=== PATIENT | male | born 1945 | race Caucasian/White ===

== ENCOUNTER 2017-04-09 07:58 | Outpatient (CLI) | payer MEDICARE, OTHER ==
--- NOTE | 2017-04-09 09:35 | Ultrasound Report ---
LIMITED RETROPERITONEAL ULTRASOUND: 04/09/2017 CLINICAL INDICATION: Followup aneurysm. COMPARISON: 01/19/2016 TECHNIQUE: Real-time scanning was performed with environmental marketing representative static images obtained. FINDINGS: The abdominal aorta measures 2.0 cm proximally, and 2.6 cm in the mid portion. Mild aneur ysmal dilatation distally is again seen, measuring 3.1 x 3.0 cm (3.[address] 01/19/2016). The iliac s are normal in caliber. No free fluid is present. IMPRESSION: STABLE SMALL DISTAL ABDOMINAL AORTIC ANEURYSM. JOB #: [id number] EXT JOB #:[id number]
== END 2017-04-09 07:59 | disposition home or self-care (01) ==
LOC: DI 07:58
PROVIDERS: ATTEND Family Medicine
DX: I71.4 Abdominal aortic aneurysm, without rupture (principal)
CPT/HCPCS: 76770

== ENCOUNTER 2017-09-25 08:00 | Outpatient (CLI) | payer MEDICARE, BC ==
[2017-09-25 12:42] LABS: BASOPHILS # (AUTO) 0.1 10^3/uL (0.0-0.1); EOSINOPHILS # (AUTO) 0.2 10^3/uL (0.0-0.7); EOSINOPHILS % (AUTO) 4.7 %; HGB - HEMOGLOBIN 13.9 g/dL (14.0-18.0); LYMPHOCYTES # (AUTO) 0.9 10^3/uL (1.5-3.5); LYMPHOCYTES % (AUTO) 17.3 %; MEAN CORPUSCULAR HEMOGLOBIN 31.2 pg (27.0-31.0); MEAN CORPUSCULAR HGB CONC 32.7 g/dL (32.0-36.0); MEAN CORPUSCULAR VOLUME 95.4 fL (80.0-94.0); MONOCYTES # (AUTO) 0.4 10^3/uL (0.0-1.0); MONOCYTES % (AUTO) 8.3 %; NEUTROPHILS # (AUTO) 3.4 10^3/uL (1.5-6.6); NEUTROPHILS % (AUTO) 66.7 %; PLT - PLATELET COUNT 256 10^3/uL (130-450); RED BLOOD COUNT 4.44 10^6/uL (4.70-6.10); RED CELL DISTRIBUTION WIDTH 13.1 % (12.0-15.0); WHITE BLOOD COUNT 5.1 x10^3/uL (4.8-10.8)
[2017-09-25 13:11] LABS: ALBUMIN 4.4 g/dL (3.2-5.5); ALBUMIN/GLOBULIN RATIO 1.5 (1.0-2.2); ALKALINE PHOSPHATASE 72 IU/L (42-121); ALT ALANINE AMINOTRANSFERASE 20 IU/L (10-60); AST ASPARTATE AMINOTRANSFERASE 20 IU/L (10-42); BILIRUBIN,TOTAL 0.5 mg/dL (0.2-1.0); BUN - BLOOD UREA NITROGEN 20 mg/dL (6-20); CALCIUM 8.8 mg/dL (8.5-10.3); CARBON DIOXIDE - CO2 24 mmol/L (21-32); CHLORIDE 108 mmol/L (101-111); CHOL/HDL RATIO 4.9 (<5.0); CHOLESTEROL 175 mg/dL; CREATININE 1.1 mg/dL (0.6-1.2); GFR - MDRD 66 (>89); GLUCOSE 101 mg/dL (70-100); HDL CHOLESTEROL 36 mg/dL; LDL CHOLESTEROL,CALCULATED 113 mg/dL; LDL/HDL RATIO 3.1 (<3.6); SODIUM 137 mmol/L (135-145); TOTAL PROTEIN 7.3 g/dL (6.7-8.2); VLDL CHOLESTEROL 26 mg/dL
== END 2017-09-25 08:01 | disposition home or self-care (01) ==
LOC: LAB.WCP 08:00
PROVIDERS: ATTEND Family Medicine
DX: I48.91 Unspecified atrial fibrillation (principal); E78.9 Disorder of lipoprotein metabolism, unspecified; R97.20 Elevated prostate specific antigen [PSA]; I10 Essential (primary) hypertension; M05.9 Rheumatoid arthritis with rheumatoid factor, unspecified; K21.9 Gastro-esophageal reflux disease without esophagitis
CPT/HCPCS: 36415; 80053; 80061; 83721; 84153; 84443; 85025

== ENCOUNTER 2018-01-27 08:00 | Outpatient (CLI) | payer MEDICARE, BC | END 2018-01-27 08:01 | LOC: LAB.WCP 08:00 | PROVIDERS: ATTEND Internal Medicine Gastroenterology | DX: K13.70 Unspecified lesions of oral mucosa (principal) | CPT/HCPCS: 36415; 82565 ==

== ENCOUNTER 2018-03-28 08:11 | Outpatient (CLI) | payer MEDICARE, BC ==
[2018-03-28 13:59] LABS: BASOPHILS # (AUTO) 0.1 10^3/uL (0.0-0.1); BASOPHILS % (AUTO) 1.3 %; EOSINOPHILS # (AUTO) 0.2 10^3/uL (0.0-0.7); EOSINOPHILS % (AUTO) 4.7 %; HGB - HEMOGLOBIN 13.7 g/dL (14.0-18.0); LYMPHOCYTES # (AUTO) 1.2 10^3/uL (1.5-3.5); LYMPHOCYTES % (AUTO) 26.3 %; MEAN CORPUSCULAR HEMOGLOBIN 31.7 pg (27.0-31.0); MEAN CORPUSCULAR HGB CONC 34.5 g/dL (32.0-36.0); MEAN PLATELET VOLUME 8.7 fL (7.4-11.4); MONOCYTES # (AUTO) 0.5 10^3/uL (0.0-1.0); MONOCYTES % (AUTO) 10.6 %; NEUTROPHILS # (AUTO) 2.7 10^3/uL (1.5-6.6); NEUTROPHILS % (AUTO) 57.1 %; PLT - PLATELET COUNT 212 10^3/uL (130-450); RED BLOOD COUNT 4.31 10^6/uL (4.70-6.10); RED CELL DISTRIBUTION WIDTH 12.9 % (12.0-15.0); WHITE BLOOD COUNT 4.7 x10^3/uL (4.8-10.8)
[2018-03-28 14:07] LABS: ALBUMIN 4.1 g/dL (3.2-5.5); ALBUMIN/GLOBULIN RATIO 1.5 (1.0-2.2); ALKALINE PHOSPHATASE 73 IU/L (42-121); ALT ALANINE AMINOTRANSFERASE 24 IU/L (10-60); AST ASPARTATE AMINOTRANSFERASE 24 IU/L (10-42); BILIRUBIN,TOTAL 1.1 mg/dL (0.2-1.0); BUN - BLOOD UREA NITROGEN 21 mg/dL (6-20); CALCIUM 8.8 mg/dL (8.5-10.3); CARBON DIOXIDE - CO2 27 mmol/L (21-32); CHLORIDE 106 mmol/L (101-111); CHOL/HDL RATIO 4.5 (<5.0); CHOLESTEROL 176 mg/dL; CREATININE 1.1 mg/dL (0.6-1.2); GFR - MDRD 66 (>89); GLUCOSE 95 mg/dL (70-100); HDL CHOLESTEROL 39 mg/dL; LDL CHOLESTEROL,CALCULATED 118 mg/dL; SODIUM 139 mmol/L (135-145); TOTAL PROTEIN 6.8 g/dL (6.7-8.2); VLDL CHOLESTEROL 19 mg/dL
== END 2018-03-28 08:12 | disposition home or self-care (01) ==
LOC: LAB.WCP 08:11
PROVIDERS: ATTEND Family Medicine
DX: I48.91 Unspecified atrial fibrillation (principal); I71.9 Aortic aneurysm of unspecified site, without rupture; Z95.0 Presence of cardiac pacemaker; E78.5 Hyperlipidemia, unspecified; M51.36 Other intervertebral disc degeneration, lumbar region
CPT/HCPCS: 36415; 80053; 80061; 83721; 85025

== ENCOUNTER 2018-10-17 07:47 | Outpatient (CLI) | payer MEDICARE, BC ==
[2018-10-17 13:32] LABS: BASOPHILS % (AUTO) 0.7 %; EOSINOPHILS # (AUTO) 0.2 10^3/uL (0.0-0.7); EOSINOPHILS % (AUTO) 4.4 %; HGB - HEMOGLOBIN 14.1 g/dL (14.0-18.0); LYMPHOCYTES # (AUTO) 1.2 10^3/uL (1.5-3.5); LYMPHOCYTES % (AUTO) 25.1 %; MEAN CORPUSCULAR HEMOGLOBIN 31.8 pg (27.0-31.0); MEAN CORPUSCULAR HGB CONC 35.1 g/dL (32.0-36.0); MEAN CORPUSCULAR VOLUME 90.7 fL (80.0-94.0); MEAN PLATELET VOLUME 8.5 fL (7.4-11.4); MONOCYTES # (AUTO) 0.5 10^3/uL (0.0-1.0); NEUTROPHILS # (AUTO) 2.9 10^3/uL (1.5-6.6); NEUTROPHILS % (AUTO) 58.8 %; PLT - PLATELET COUNT 208 10^3/uL (130-450); RED BLOOD COUNT 4.42 10^6/uL (4.70-6.10); RED CELL DISTRIBUTION WIDTH 13.2 % (12.0-15.0); WHITE BLOOD COUNT 4.9 x10^3/uL (4.8-10.8)
[2018-10-17 14:05] LABS: ALBUMIN 3.9 g/dL (3.2-5.5); ALBUMIN/GLOBULIN RATIO 1.3 (1.0-2.2); BILIRUBIN,TOTAL 0.9 mg/dL (0.2-1.0); CALCIUM 8.9 mg/dL (8.5-10.3); CREATININE 0.9 mg/dL (0.6-1.2); TOTAL PROTEIN 6.8 g/dL (6.7-8.2)
== END 2018-10-17 07:48 | disposition home or self-care (01) ==
LOC: LAB.WCP 07:47
PROVIDERS: ATTEND Family Medicine
DX: N40.0 Benign prostatic hyperplasia without lower urinary tract symptoms (principal); I10 Essential (primary) hypertension; E78.5 Hyperlipidemia, unspecified; K21.9 Gastro-esophageal reflux disease without esophagitis; Z12.5 Encounter for screening for malignant neoplasm of prostate
CPT/HCPCS: 36415; 80053; 85025; G0103; 84153

== ENCOUNTER 2019-02-24 07:27 | Outpatient (CLI) | payer MEDICARE, BC ==
[2019-02-24 12:29] LABS: BASOPHILS % (AUTO) 0.9 %; EOSINOPHILS # (AUTO) 0.2 10^3/uL (0.0-0.7); EOSINOPHILS % (AUTO) 3.7 %; HGB - HEMOGLOBIN 13.3 g/dL (14.0-18.0); LYMPHOCYTES # (AUTO) 1.2 10^3/uL (1.5-3.5); LYMPHOCYTES % (AUTO) 25.6 %; MEAN CORPUSCULAR HEMOGLOBIN 30.5 pg (27.0-31.0); MEAN CORPUSCULAR HGB CONC 32.3 g/dL (32.0-36.0); MEAN CORPUSCULAR VOLUME 94.5 fL (80.0-94.0); MEAN PLATELET VOLUME 10.4 fL (7.4-11.4); MONOCYTES # (AUTO) 0.5 10^3/uL (0.0-1.0); MONOCYTES % (AUTO) 10.8 %; NEUTROPHILS # (AUTO) 2.7 10^3/uL (1.5-6.6); NEUTROPHILS % (AUTO) 58.8 %; PLT - PLATELET COUNT 208 10^3/uL (130-450); RED BLOOD COUNT 4.36 10^6/uL (4.70-6.10); RED CELL DISTRIBUTION WIDTH 12.8 % (12.0-15.0); WHITE BLOOD COUNT 4.5 x10^3/uL (4.8-10.8)
[2019-02-24 12:41] LABS: ALBUMIN 3.9 g/dL (3.2-5.5); ALBUMIN/GLOBULIN RATIO 1.3 (1.0-2.2); ALKALINE PHOSPHATASE 76 IU/L (42-121); ALT ALANINE AMINOTRANSFERASE 25 IU/L (10-60); AST ASPARTATE AMINOTRANSFERASE 23 IU/L (10-42); BILIRUBIN,TOTAL 0.9 mg/dL (0.2-1.0); BUN - BLOOD UREA NITROGEN 17 mg/dL (6-20); CARBON DIOXIDE - CO2 23 mmol/L (21-32); CHLORIDE 108 mmol/L (101-111); CHOL/HDL RATIO 4.6 (<5.0); CHOLESTEROL 174 mg/dL; CREATININE 0.9 mg/dL (0.6-1.2); GFR - MDRD 83 (>89); GLUCOSE 106 mg/dL (70-100); HDL CHOLESTEROL 38 mg/dL; LDL CHOLESTEROL,CALCULATED 121 mg/dL; LDL/HDL RATIO 3.2 (<3.6); SODIUM 140 mmol/L (135-145); TOTAL PROTEIN 6.9 g/dL (6.7-8.2); VLDL CHOLESTEROL 15 mg/dL
== END 2019-02-24 07:28 | disposition home or self-care (01) ==
LOC: LAB.WCP 07:27
PROVIDERS: ATTEND Physician Assistant Medical
DX: R97.20 Elevated prostate specific antigen [PSA] (principal); R00.1 Bradycardia, unspecified; E78.5 Hyperlipidemia, unspecified
CPT/HCPCS: 36415; 80053; 80061; 83721; 84443; 85025

== ENCOUNTER 2019-07-30 15:00 | Emergency (ER) | payer MEDICARE, BC ==
[2019-07-30 15:16] VITALS: BP 141/75
[2019-07-30 15:33] LABS: BASOPHILS % (AUTO) 0.2 %; EOSINOPHILS # (AUTO) 0.1 10^3/uL (0.0-0.7); EOSINOPHILS % (AUTO) 1.2 %; HGB - HEMOGLOBIN 14.2 g/dL (14.0-18.0); LYMPHOCYTES % (AUTO) 11.2 %; MEAN CORPUSCULAR HEMOGLOBIN 31.1 pg (27.0-31.0); MEAN CORPUSCULAR HGB CONC 33.1 g/dL (32.0-36.0); MEAN CORPUSCULAR VOLUME 94.1 fL (80.0-94.0); MEAN PLATELET VOLUME 9.5 fL (7.4-11.4); MONOCYTES # (AUTO) 0.6 10^3/uL (0.0-1.0); MONOCYTES % (AUTO) 6.9 %; NEUTROPHILS # (AUTO) 6.9 10^3/uL (1.5-6.6); NEUTROPHILS % (AUTO) 80.1 %; PLT - PLATELET COUNT 229 10^3/uL (130-450); RED BLOOD COUNT 4.56 10^6/uL (4.70-6.10); RED CELL DISTRIBUTION WIDTH 12.6 % (12.0-15.0); WHITE BLOOD COUNT 8.6 x10^3/uL (4.8-10.8)
[2019-07-30 15:46] LABS: ALBUMIN 4.4 g/dL (3.2-5.5); ALBUMIN/GLOBULIN RATIO 1.4 (1.0-2.2); BILIRUBIN,TOTAL 0.8 mg/dL (0.2-1.0); CALCIUM 9.3 mg/dL (8.5-10.3); TOTAL PROTEIN 7.5 g/dL (6.7-8.2)
--- NOTE | 2019-07-30 16:13 | CT Report ---
Reason: fall followed by confusion Procedure Date: 07/30/2019 Accession Number: [id number] / [id number] Procedure: CT - HEAD WO CPT Code: Final Report FULL RESULT: EXAM: CT HEAD EXAM DATE: 07/30/2019 03:34 PM CLINICAL HISTORY: Fall followed by confusion. COMPARISON: NONE TECHNIQUE: Multiaxial CT images were obtained from the foramen magnum to the vertex. Reformats: Sagittal and coronal. IV contrast: None. In accordance with CT protocol optimization, one or more of the following dose reduction techniques were utilized for this exam: automated exposure control, adjustment of mA and/or KV based on patient size, or use of iterative reconstructive technique. FINDINGS: There is moderate cerebral atrophy . No evidence of intracranial hemorrhage, mass lesion or mass effect. No cortical infarct. Ventricles are within normal limits. No evidence of focal extraaxial fluid collection. Clear paranasal sinuses and mastoid air cells as visualized. Intact skull. There is a small amount of air noted adjacent to the lateral aspect of the right lateral maxillary sinus wall. Correlate for facial fracture although no other evidence for such is identified on this exam. Mild irregularity at the right zygomatic arch appears to be from a variant appearance of suture. IMPRESSION: Cerebral atrophy. No intracranial hemorrhage. No skull fracture. There is a small amount of air at the right infratemporal fossa. See above comments. RADIA
== END 2019-07-30 16:40 | disposition left against medical advice (07) ==
LOC: ED 15:00
DX: S63.501A Unspecified sprain of right wrist, initial encounter (principal); S00.83XA Contusion of other part of head, initial encounter; S60.222A Contusion of left hand, initial encounter; S60.221A Contusion of right hand, initial encounter; S60.511A Abrasion of right hand, initial encounter; S60.411A Abrasion of left index finger, initial encounter; S80.212A Abrasion, left knee, initial encounter; S80.211A Abrasion, right knee, initial encounter; W10.8XXA Fall (on) (from) other stairs and steps, initial encounter; Y92.29 Other specified public building as the place of occurrence of the external cause; Y93.01 Activity, walking, marching and hiking; E04.1 Nontoxic single thyroid nodule; M54.2 Cervicalgia; Z95.0 Presence of cardiac pacemaker; Z79.82 Long term (current) use of aspirin
CPT/HCPCS: 36415; 70450; 70486; 72125; 73110; 80053; 83690; 85025; 99284; A9270

== ENCOUNTER 2019-07-30 20:02 | Emergency (ER) | payer MEDICARE, BC ==
--- NOTE | 2019-07-30 20:56 | ED Physician Documentation ---
History of Present Illness - Stated complaint Stated Complaint: GLF/FACE LAC - Chief complaint Chief Complaint: Trauma Hd/Nk - History obtained from History obtained from: Patient - History of Present Illness Timing: Today - Additonal information Additional information: This is a 74-year-old man who was coming out of the building today and tripped coming down the stairs. He was carrying a box in his arms and he cannot ran to try and catch himself but ended up falling landing on his knees right wrist and of the right cheek. This was around noon. He was a little disoriented afterward he said he did not remember the actual fall but he drove himself home. He came into the emergency department around 3:00 this afternoon they did a head CT and he said he sat waiting in the waiting room for 4 hours and he got a little perturbed so he drove home but then started swelling more in his cheek and decided that he probably should come back and get evaluated. He is rating his pain at a 6-7 out of 10. He does not really have a headache. He complains that his neck "aches", But denies any numbness or tingling or weakness into the arms or legs. He has not felt dizzy. He was little queasy immediately after the fall but no vomiting. He has not taken anything for the pain. He has a multitude of scrapes on his hands and knees. He thinks his last tetanus vaccine was 2016 here at [facility]. Review of Systems Constitutional: denies: Fever Eyes: reports: Other (No double vision). denies: Loss of vision Nose: denies: Rhinorrhea / runny nose, Congestion Respiratory: denies: Dyspnea GI: reports: Nausea. denies: Vomiting Skin: reports: Abrasion (s) Musculoskeletal: reports: Neck pain, Extremity pain Neurologic: reports: Head injury. denies: Generalized weakness, Focal weakness, Numbness, Difficulty speaking, Near syncope, Syncope, Altered mental status, Headache, LOC PD PAST MEDICAL HISTORY - Past Medical History Cardiovascular: Arrhythmia - Past Surgical History Cardiovascular: Pacemaker - Present Medications Home Medications: Ambulatory Orders Medication Instructions Recorded Confirmed Aspirin [Michael Chewable Aspirin] 1 tab PO DAILY 02/17/16 02/17/16 Cephalexin 500 mg PO TID #15 capsule 02/17/16 HYDROcod/ACETAM 5/325 [[place] 5/325] 1 - 2 ea PO Q6H PRN #20 tablet 02/17/16 Multivitamin [Multivitamins] 1 tab PO DAILY 02/17/16 02/17/16 - Allergies Allergies/Adverse Reactions: Allergies Allergy/AdvReac Type Severity Reaction Status Date / Time adhesive tape Allergy Unknown Verified 07/30/19 15:17 lansoprazole Allergy Unknown Verified 07/30/19 20:27 promethazine HCl * Allergy Unknown Verified 07/30/19 20:27 [From Phenergan] - Social History Does the pt smoke?: No Smoking Status: Former smoker Does the pt drink ETOH?: Yes Does the pt have substance abuse?: No - Immunizations Immunizations are current?: No Immunizations: TDAP >10years/unknown PD ED PE NORMAL - Vitals Vital signs reviewed: Yes - General General: Alert and oriented X 3, No acute distress, Well developed/nourished - HEENT HEENT: Atraumatic, PERRL, EOMI, Moist mucous membranes - Neck Neck: No bony TTP - Cardiac Cardiac: RRR - Respiratory Respiratory: No respiratory distress - Derm Derm: Normal color, Other (Abrasion to the left index finger. There are abrasions on the right hand dorsal and volar. There is bruising to the palms of both hands. Abrasions to both knees on the patella and suprapatellar.) - Extremities Extremities: No deformity, Other (Right wrist is tender in the snuffbox and on the dorsal aspect. There is limited range of motion due to pain and swelling is noted.) - Neuro Neuro: Alert and oriented X 3, bag cutter 2-12 intact, No motor deficit, No sensory deficit, Normal speech - Psych Psych: Normal mood, Normal affect Results - Vitals Vitals: Vital Signs - 24 hr 07/30/19 07/30/19 20:27 22:49 Temperature 36.8 C Heart Rate 62 63 Respiratory 16 16 Rate Blood Pressure 114/71 131/63 H O2 Saturation 98 95 Oxygen O2 Source Room air - Rads (name of study) R wrist Radiology: See rad report (Neg fx) CT facial bones Radiology: See rad report (Soft tissue gas in R cheek, but no obvious fracture) CT neck Radiology: See rad report (Neg acute. Nodule in thyroid) PD MEDICAL DECISION MAKING - ED course Complexity details: reviewed old records, reviewed results, re-evaluated patient, d/w patient, d/w family ED course: Patient's brain CT from earlier in the day was reviewed and there was no evidence of intracranial hemorrhage. However there were is air noted in the right cheek behind the muscles suspicious for possible fracture. This was discussed with the patient and CT of the facial bones was ordered as well as CT of the cervical spine and x-rays of the right wrist. There was no obvious fracture on the CT of the facial bones and this was discussed with the patient. There was an incidental finding of a left thyroid nodule and this was discussed with him as well that he should follow-up with his primary care provider for further imaging and work-up. Wrist x-ray was negative for fracture. He was offered an Tao wrap or splint which he has declined. Take Tylenol or ibuprofen as needed for pain and continue to ice the cheek. The air should resolve spontaneously. If he continues having increasing swelling or pain he should be reevaluated and he is instructed not to blow his nose. Departure - Departure Disposition: 01 Home, Self Care Clinical Impression: Abrasions of multiple sites Contusion Qualifiers: Encounter type: initial encounter Contusion area: head Contusion of head detail: other part of head Qualified Code(s): S00.83XA - Contusion of other part of head, initial encounter Sprain of wrist, right Qualifiers: Encounter type: initial encounter Qualified Code(s): S63.501A - Unspecified sprain of right wrist, initial encounter Condition: Good Instructions: ED Abrasion, ED Contusion Face, ED Sprain Wrist Follow-Up: Jhonatan Ribeiro MD [Primary Care Provider] - Comments: There is gas in the soft tissues of the right cheek suggestive of a fracture of the facial bones however there is nothing evident on the CT. There was noted to be a nodule in the left side of your thyroid that should be followed up with your primary care provider for further imaging with ultrasound. Hold ice to the sore areas. Keep the wounds clean with soap and water and may apply a thin layer of antibiotic ointment as a heal. Okay to take ibuprofen or Tylenol if needed for pain. Discharge Date/Time: 07/30/19 22:49
[2019-07-30] MEDS ORDERED: IBUPROFEN 600 MG TABLET PO STA (21:07)
--- NOTE | 2019-07-30 21:48 | CT Report ---
Reason: neck pain s/p fall Procedure Date: 07/30/2019 Accession Number: [id number] / [id number] Procedure: CT - CERVICAL SPINE WO CPT Code: Final Report FULL RESULT: EXAM: CT CERVICAL SPINE WITHOUT CONTRAST DATE: 07/30/2019 09:19 PM. HISTORY: Neck pain s/p fall. COMPARISONS: HEAD W/O 07/30/2019 3:33 PM. TECHNIQUE: Thin-section axial images were acquired of the cervical spine without contrast. Post-processing: Coronal and sagittal reformats. Other: None. In accordance with CT protocol optimization, one or more of the following dose reduction techniques were utilized for this exam: automated exposure control, adjustment of mA and/or KV based on patient size, or use of iterative reconstructive technique. FINDINGS: Alignment: No scoliosis or spondylolisthesis. Bones: No fracture or bone lesion. Interspace Levels/Facets: Minimal disk space narrowing at all levels. Small anterior osteophytes at C5-C6 and C6-C7. Mild degenerative changes. Musculature: Unremarkable. Other: No prevertebral soft tissue swelling. Left thyroid nodule measuring about 2.0 cm. The lung apices are clear. IMPRESSION: 1. Mild degenerative changes; no acute disease. 2. Left thyroid nodule; ultrasound correlation is recommended. RADIA
--- NOTE | 2019-07-30 21:54 | XRAY Report ---
Reason: R wrist pain s/p FOOSH Procedure Date: 07/30/2019 Accession Number: [id number] / [id number] Procedure: XR - Wrist 3 View RT CPT Code: Final Report FULL RESULT: EXAM: RIGHT WRIST RADIOGRAPHY EXAM DATE: 07/30/2019 09:28 PM. CLINICAL HISTORY: R wrist pain s/p FOOSH. COMPARISON: None available. TECHNIQUE: 3 views. FINDINGS: Bones: No acute fracture or dislocation. Joints: Intact. No significant degenerative changes. Soft Tissues: There is some soft tissue swelling at the wrist. IMPRESSION: Soft tissue swelling. No acute fracture or dislocation visualized. RADIA
--- NOTE | 2019-07-30 21:56 | CT Report ---
Reason: R cheek pain s/p fall Procedure Date: 07/30/2019 Accession Number: [id number] / [id number] Procedure: CT - MAXILLOFACIAL WO CPT Code: Final Report FULL RESULT: EXAM: CT MAXILLOFACIAL WITHOUT CONTRAST EXAM DATE: 07/30/2019 09:19 PM. CLINICAL HISTORY: R cheek pain s/p fall. COMPARISONS: HEAD W/O 07/30/2019 3:33 PM. TECHNIQUE: Thin-section axial images were acquired of the face without contrast. Post-processing: Coronal and sagittal reformats. Other: None. In accordance with CT protocol optimization, one or more of the following dose reduction techniques were utilized for this exam: automated exposure control, adjustment of mA and/or KV based on patient size, or use of iterative reconstructive technique. FINDINGS: Metallic streak artifact from bilateral maxillary and mandibular dental fillings degrades the evaluation of the maxilla and mandible. Soft Tissue: Gas is seen in the soft tissues of the right face consistent with a history of trauma. The gas extends along the floor of the mouth and extends along the sphenopalatine foramen as well as superiorly along the posterior wall of the maxillary sinus. The infratemporal fossa and parapharyngeal spaces are unremarkable. Orbits: Symmetric and within normal limits. Bones: No fracture or bone lesion. Temporomandibular Joints: The temporomandibular joints are symmetric and normally located. Sinuses: Normal. No mucosal thickening or fluid levels. Other: Degenerative changes in the cervical spine. IMPRESSION: Right facial soft tissue gas consistent with history of injury. There is no evidence of fracture. Evaluation of the maxilla and mandible is degraded by metallic artifact caused by dental fillings. RADIA
[2019-07-30 22:50] VITALS: BP 131/63
== END 2019-07-30 22:49 | disposition home or self-care (01) ==
LOC: ED 20:02
DX: S63.501A Unspecified sprain of right wrist, initial encounter (principal); S00.83XA Contusion of other part of head, initial encounter; S60.222A Contusion of left hand, initial encounter; S60.221A Contusion of right hand, initial encounter; S60.411A Abrasion of left index finger, initial encounter; S60.511A Abrasion of right hand, initial encounter; S80.212A Abrasion, left knee, initial encounter; S80.211A Abrasion, right knee, initial encounter; M54.2 Cervicalgia; W10.8XXA Fall (on) (from) other stairs and steps, initial encounter; Y93.01 Activity, walking, marching and hiking; Y92.29 Other specified public building as the place of occurrence of the external cause; E04.1 Nontoxic single thyroid nodule; Z95.0 Presence of cardiac pacemaker; Z79.82 Long term (current) use of aspirin; Z87.891 Personal history of nicotine dependence
CPT/HCPCS: 70486; 72125; 99284

== ENCOUNTER 2019-08-14 09:00 | Outpatient (CLI) | payer MEDICARE, BC ==
[2019-08-14 12:26] LABS: BASOPHILS % (AUTO) 0.6 %; EOSINOPHILS # (AUTO) 0.2 10^3/uL (0.0-0.7); EOSINOPHILS % (AUTO) 3.8 %; HGB - HEMOGLOBIN 13.4 g/dL (14.0-18.0); LYMPHOCYTES # (AUTO) 1.3 10^3/uL (1.5-3.5); LYMPHOCYTES % (AUTO) 24.7 %; MEAN CORPUSCULAR HEMOGLOBIN 30.4 pg (27.0-31.0); MEAN CORPUSCULAR HGB CONC 32.4 g/dL (32.0-36.0); MEAN CORPUSCULAR VOLUME 93.7 fL (80.0-94.0); MEAN PLATELET VOLUME 10.1 fL (7.4-11.4); MONOCYTES # (AUTO) 0.5 10^3/uL (0.0-1.0); MONOCYTES % (AUTO) 9.6 %; NEUTROPHILS # (AUTO) 3.2 10^3/uL (1.5-6.6); NEUTROPHILS % (AUTO) 60.9 %; PLT - PLATELET COUNT 242 10^3/uL (130-450); RED BLOOD COUNT 4.41 10^6/uL (4.70-6.10); RED CELL DISTRIBUTION WIDTH 12.8 % (12.0-15.0); WHITE BLOOD COUNT 5.2 x10^3/uL (4.8-10.8)
[2019-08-14 12:40] LABS: ALBUMIN 3.9 g/dL (3.2-5.5); ALBUMIN/GLOBULIN RATIO 1.4 (1.0-2.2); BILIRUBIN,TOTAL 0.8 mg/dL (0.2-1.0); CALCIUM 9.1 mg/dL (8.5-10.3); TOTAL PROTEIN 6.7 g/dL (6.7-8.2)
[2019-08-14 13:13] LABS: THYROID STIMULATING HORMONE 2.07 uIU/mL (0.34-5.60)
[2019-08-14 13:15] LABS: FREE T4 (FREE THYROXINE) 0.88 ng/dL (0.58-1.64)
== END 2019-08-14 23:59 | disposition home or self-care (01) ==
LOC: LAB.WCP 09:00
PROVIDERS: ATTEND Family Medicine
DX: E04.1 Nontoxic single thyroid nodule (principal); I10 Essential (primary) hypertension; E78.5 Hyperlipidemia, unspecified
CPT/HCPCS: 36415; 80053; 84439; 84443; 85025; 86376; 86800

== ENCOUNTER 2019-08-20 09:18 | Outpatient (CLI) | payer MEDICARE, BC ==
--- NOTE | 2019-08-20 13:12 | Ultrasound Report ---
Reason: THYROID NODULE Procedure Date: 08/20/2019 Accession Number: [id number] / [id number] Procedure: US - Head or Neck Soft Tissue CPT Code: Final Report FULL RESULT: EXAM: THYROID ULTRASOUND EXAM DATE: 08/20/2019 09:57 AM. CLINICAL HISTORY: Thyroid nodule. COMPARISON: CERVICAL SPINE W/O 07/30/2019 9:17 PM. TECHNIQUE: Real time sonographic imaging of the thyroid was performed by the museum director. Multiple patient access representative static images were saved for review. FINDINGS: THYROID GLAND: Right Lobe: 4.2 x 1.9 x 1.4 cm, volume 5.8 cc. Normal background echotexture. Right Lobe Nodules: None. Left Lobe: 4.1 x 3.7 x 2.2 cm, volume 18 cc. Normal background echotexture. Left Lobe Nodules: 2.6 x 1.9 x 2.1 cm hypoechoic solid nodule with internal vascularity. Isthmus: 0.14 cm AP. Isthmic Nodules: None. LYMPH NODES: No adenopathy demonstrated in the central or lateral compartment. OTHER: None. IMPRESSION: Tissue sampling by fine-needle aspiration under ultrasound guidance of the solid hypoechoic nodule in the left lobe of the thyroid is warranted by size criteria. Management recommendations are based on 2015 [place] Management Guidelines for Adult Patients with Thyroid Nodules and Differentiated Thyroid Cancer. RADIA
== END 2019-08-20 09:19 | disposition home or self-care (01) ==
LOC: DI 09:18
PROVIDERS: ATTEND Family Medicine
DX: E04.1 Nontoxic single thyroid nodule (principal)
CPT/HCPCS: 76536

== ENCOUNTER 2019-10-01 09:20 | Outpatient (CLI) | payer MEDICARE, BC ==
--- NOTE | 2019-10-01 20:41 | Ultrasound Report ---
Reason: NUMBNESS TINGLING BILAT LEGS BELOW KNEES Procedure Date: 10/01/2019 Accession Number: [id number] / [id number] Procedure: US - Ankle Brachial Index CPT Code: Final Report FULL RESULT: EXAM: BILATERAL ANKLE/BRACHIAL INDEX EXAM DATE: 10/01/2019 10:10 AM. CLINICAL HISTORY: Numbness tingling bilateral legs below knees. COMPARISON: None. TECHNIQUE: A blood pressure cuff and pulse volume recording Doppler ultrasound was used to evaluate the arterial pressures in the arms and ankle. No images were acquired. FINDINGS: Brachial pressure: Right brachial artery: 121 mmHg, index 1.00 Left brachial artery: 128 mmHg, index 1.00 Right ankle pressures: 157/59. Ratio of 1.22. Left ankle pressures: 160/75. Ratio of 1.25. IMPRESSION: 1. Right ankle/brachial index: 1.22. 2. Left ankle/brachial index: 1.25. ANKLE/BRACHIAL INDEX REFERENCE STANDARDS 1.0-1.4: Normal 0.90-0.99: Borderline < 0.9: Abnormal RADIA
== END 2019-10-01 09:21 | disposition home or self-care (01) ==
LOC: DI 09:20
PROVIDERS: ATTEND Surgery
DX: R20.8 Other disturbances of skin sensation (principal)
CPT/HCPCS: 93922

== ENCOUNTER 2019-10-28 09:32 | Outpatient (CLI) | payer MEDICARE, BC ==
[2019-10-28] MEDS ORDERED: BUFFERED LIDOCAINE 10 ML SYRINGE ONE (09:49)
[2019-10-28] MEDS: BUFFERED LIDOCAINE 10 ML SYRINGE IU ONE (11:59)
--- NOTE | 2019-10-28 12:41 | Ultrasound Report ---
Reason: THYROID NODULE Procedure Date: 10/28/2019 Accession Number: [id number] / [id number] Procedure: US - FNA Bx w/US Gnd les CPT Code: 93703 Final Report FULL RESULT: EXAM: Thyroid Fine Needle Aspiration EXAM DATE: 10/28/2019 10:28 AM. CLINICAL HISTORY: Thyroid nodule. COMPARISON: None. TECHNIQUE: The risks, benefits, and alternatives of the procedure were discussed with the patient. All questions were answered. Written and verbal consent were obtained. A site was marked over the left thyroid nodule in question under live sonographic evaluation, then subsequently prepped and draped in a sterile manner. Local anesthesia was performed with 1% lidocaine. A total of 4 22 gauge fine-needle aspirates/passes were performed through the left thyroid nodule in question, then passed to the ophthalmic technologist for preparation. Estimated blood loss was 0 mL. Sonographic images demonstrate needle placement within left thyroid nodule in question. FINDINGS IMPRESSION: FNA of left thyroid nodule. Please note that the nodule appeared to collapse during the biopsy leaving the impression of potentially hemorrhagic cyst based on images and lesion behavior/aspirate during the procedure. RADIA
== END 2019-10-28 09:33 | disposition home or self-care (01) ==
LOC: DI 09:32
PROVIDERS: ATTEND Surgery
DX: E04.1 Nontoxic single thyroid nodule (principal)
CPT/HCPCS: 10005

== ENCOUNTER 2020-12-14 08:00 | Outpatient (CLI) | payer MEDICARE, BC ==
[2020-12-14 11:56] LABS: BASOPHILS % (AUTO) 0.8 %; EOSINOPHILS # (AUTO) 0.2 10^3/uL (0.0-0.7); EOSINOPHILS % (AUTO) 4.8 %; HCT - HEMATOCRIT 41.5 % (42.0-52.0); HGB - HEMOGLOBIN 13.5 g/dL (14.0-18.0); LYMPHOCYTES # (AUTO) 1.1 10^3/uL (1.5-3.5); LYMPHOCYTES % (AUTO) 22.7 %; MEAN CORPUSCULAR HEMOGLOBIN 31.1 pg (27.0-31.0); MEAN CORPUSCULAR HGB CONC 32.5 g/dL (32.0-36.0); MEAN CORPUSCULAR VOLUME 95.6 fL (80.0-94.0); MEAN PLATELET VOLUME 10.5 fL (7.4-11.4); MONOCYTES # (AUTO) 0.5 10^3/uL (0.0-1.0); MONOCYTES % (AUTO) 10.6 %; NEUTROPHILS # (AUTO) 2.9 10^3/uL (1.5-6.6); NEUTROPHILS % (AUTO) 60.7 %; PLT - PLATELET COUNT 205 10^3/uL (130-450); RED BLOOD COUNT 4.34 10^6/uL (4.70-6.10); RED CELL DISTRIBUTION WIDTH 13.2 % (12.0-15.0); WHITE BLOOD COUNT 4.8 x10^3/uL (4.8-10.8)
[2020-12-14 12:11] LABS: CREATININE,URINE 208.2 mg/dL; MICROALBUM/CREATININE RATIO,UR 13.4 ug/mg (<30.0); MICROALBUMIN,URINE 2.8 mg/dL (0-300.0)
[2020-12-14 12:29] LABS: ESTIMATED AVERAGE GLUCOSE 114 mg/dL (70-100); HEMOGLOBIN A1c% 5.6 % (4.27-6.07)
[2020-12-14 12:46] LABS: ALBUMIN 3.9 g/dL (3.2-5.5); ALBUMIN/GLOBULIN RATIO 1.5 (1.0-2.2); ALKALINE PHOSPHATASE 87 IU/L (42-121); ALT ALANINE AMINOTRANSFERASE 30 IU/L (10-60); AST ASPARTATE AMINOTRANSFERASE 25 IU/L (10-42); BILIRUBIN,TOTAL 0.8 mg/dL (0.2-1.0); BUN - BLOOD UREA NITROGEN 14 mg/dL (6-20); CALCIUM 8.8 mg/dL (8.5-10.3); CARBON DIOXIDE - CO2 28 mmol/L (21-32); CHLORIDE 108 mmol/L (101-111); CHOLESTEROL 203 mg/dL; GFR - MDRD 73 (>89); GLUCOSE 110 mg/dL (70-100); HDL CHOLESTEROL 41 mg/dL; LDL CHOLESTEROL,CALCULATED 139 mg/dL; LDL/HDL RATIO 3.4 (<3.6); SODIUM 143 mmol/L (135-145); TOTAL PROTEIN 6.5 g/dL (6.7-8.2); TRIGLYCERIDES 115 mg/dL; VLDL CHOLESTEROL 23 mg/dL
[2020-12-14 12:53] LABS: THYROID STIMULATING HORMONE 1.52 uIU/mL (0.34-5.60)
[2020-12-16 23:12] LABS: ALBUMIN 3.7 g/dL (3.8-4.8); ALPHA 1 GLOBULIN 0.3 g/dL (0.2-0.3); ALPHA 2 GLOBULIN 0.7 g/dL (0.5-0.9); BETA 1 GLOBULIN 0.4 g/dL (0.4-0.6); BETA 2 GLOBULIN 0.3 g/dL (0.2-0.5); GAMMA GLOBULIN 0.7 g/dL (0.8-1.7)
== END 2020-12-14 23:59 | disposition home or self-care (01) ==
LOC: LAB.WCP 08:00
PROVIDERS: ATTEND Internal Medicine
DX: I10 Essential (primary) hypertension (principal); N40.0 Benign prostatic hyperplasia without lower urinary tract symptoms; R73.01 Impaired fasting glucose; G62.9 Polyneuropathy, unspecified
CPT/HCPCS: 36415; 80053; 80061; 81599; 82043; 82570; 82607; 83036; 83721; 84153; 84155; 84165; 84443; 85025; 86334

== ENCOUNTER 2021-01-02 07:38 | Outpatient (CLI) | payer MEDICARE, BC ==
--- NOTE | 2021-01-02 17:31 | Ultrasound Report ---
PROCEDURE: Retroperitoneal Limited INDICATIONS: ABDOMINAL AORTIC ANEURYSM TECHNIQUE: Real-time scanning was performed of the retroperitoneal organs, with image documentation. COMPARISON: Abdomen ultrasound 04/09/2017 FINDINGS: The proximal mid and distal aorta measure 2.6 x 2.7 cm, 2.6 x 2.7 cm and 3.7 x 3.7 cm compared to 2. 0 cm, 2.6 cm and 3.1 x 3.0 cm on prior exam. Right and left common iliac arteries measure 1.5 x 1.4 c m and 1.5 x 1.6 cm respectively. IMPRESSION: Interval increase in ectasia/mild aneurysmal dilation of the distal abdominal aorta as above. Continu ed interval follow-up is recommended to document stability/evaluate of continued progression. Reviewed by: Karen Nixon MD on 01/02/2021 4:29 PM KATHRYN Approved by: Karen Nixon MD on 01/02/2021 4:29 PM KATHRYN Station ID: [id number]
== END 2021-01-02 07:39 | disposition home or self-care (01) ==
LOC: DI 07:38
PROVIDERS: ATTEND Internal Medicine
DX: I71.4 Abdominal aortic aneurysm, without rupture (principal)

== ENCOUNTER 2021-02-07 12:12 | Emergency (ER) | payer MEDICARE, BC ==
--- OUTSIDE RECORDS SUMMARY | 2021-02-07 12:47 | EXTERNAL MEDICAL SUMMARY RPT | Continuity of Care Document ---
:1945 Demographics Phone Unavailable Preferred Language Unknown Marital Status Unknown Rastafari Affiliation Unknown Race Unknown Ethnic Group Unknown Author Organization [place] Address [address] [phone] Phone Allergies Encounters Medications Problems Results
[2021-02-07 12:57] LABS: BASOPHILS % (AUTO) 0.8 %; EOSINOPHILS # (AUTO) 0.2 10^3/uL (0.0-0.7); EOSINOPHILS % (AUTO) 4.3 %; HCT - HEMATOCRIT 39.8 % (42.0-52.0); HGB - HEMOGLOBIN 13.6 g/dL (14.0-18.0); LYMPHOCYTES % (AUTO) 19.9 %; MEAN CORPUSCULAR HEMOGLOBIN 31.9 pg (27.0-31.0); MEAN CORPUSCULAR HGB CONC 34.2 g/dL (32.0-36.0); MEAN CORPUSCULAR VOLUME 93.4 fL (80.0-94.0); MONOCYTES # (AUTO) 0.5 10^3/uL (0.0-1.0); MONOCYTES % (AUTO) 10.3 %; NEUTROPHILS # (AUTO) 3.1 10^3/uL (1.5-6.6); NEUTROPHILS % (AUTO) 64.5 %; PLT - PLATELET COUNT 197 10^3/uL (130-450); RED BLOOD COUNT 4.26 10^6/uL (4.70-6.10); RED CELL DISTRIBUTION WIDTH 12.6 % (12.0-15.0); WHITE BLOOD COUNT 4.9 x10^3/uL (4.8-10.8)
--- NOTE | 2021-02-07 13:09 | XRAY Report ---
PROCEDURE: Chest 1 View X-Ray INDICATIONS: Chest pain TECHNIQUE: One view of the chest was acquired. COMPARISON: None FINDINGS: Surgical changes and devices: Right chest wall two-lead cardiac pacing device. Lungs and pleura: No pleural effusions or pneumothorax. Lungs are clear. Mediastinum: Mediastinal contours appear normal. Heart size is normal. Bones and chest wall: No suspicious bony lesions. Overlying soft tissues appear unremarkable. IMPRESSION: No acute finding. Reviewed by: Chao Peters MD on 02/07/2021 1:07 PM PDT Approved by: Chao Peters MD on 02/07/2021 1:07 PM PDT Station ID: [id number]
[2021-02-07 13:18] LABS: ALBUMIN 4.2 g/dL (3.2-5.5); ALBUMIN/GLOBULIN RATIO 1.5 (1.0-2.2); BILIRUBIN,TOTAL 0.8 mg/dL (0.2-1.0); CALCIUM 9.1 mg/dL (8.5-10.3)
[2021-02-07] MEDS ORDERED: FUROSEMIDE 20 MG TABLET PO STA (14:26)
--- NOTE | 2021-02-07 14:30 | ED Physician Documentation ---
History of Present Illness - Stated complaint Stated Complaint: LEG SWELLING/SENT BY - Chief complaint Chief Complaint: Cardiac - History obtained from History obtained from: Patient - Additonal information Additional information: Pt comes to the ED for CC of lower extremity edema, increasing for past month. Pt reports swelling is symmetrical on both sides. No erythema. No fevers. No SOB/CP. Pt denies h/o CHF or renal failure. He does admit to gaining 40 lb in the past year and not exercising much at all. Pt occasionally elevates his feet. His states he eats a lot of salt, and pt states he eats a lot of sugar. Pt has not tried pressure stockings. Review of Systems Ten Systems: 10 systems reviewed and negative Constitutional: reports: Reviewed and negative Eyes: reports: Reviewed and negative Ears: reports: Reviewed and negative Nose: reports: Reviewed and negative Throat: reports: Reviewed and negative Cardiac: reports: Reviewed and negative. denies: Chest pain / pressure Respiratory: reports: Reviewed and negative. denies: Dyspnea GI: reports: Reviewed and negative : reports: Reviewed and negative Skin: reports: Reviewed and negative Musculoskeletal: reports: Extremity swelling Neurologic: reports: Reviewed and negative Psychiatric: reports: Reviewed and negative Endocrine: reports: Reviewed and negative Immunocompromised: reports: Reviewed and negative PD PAST MEDICAL HISTORY - Past Medical History Past Medical History: Yes Cardiovascular: Arrhythmia - Past Surgical History Cardiovascular: Pacemaker - Present Medications Home Medications: Ambulatory Orders Medication Instructions Recorded Confirmed Aspirin [Michael Chewable Aspirin] 1 tab PO DAILY 02/17/16 02/07/21 Cephalexin 500 mg PO TID #15 capsule 02/17/16 Multivitamin [Multivitamins] 1 tab PO DAILY 02/17/16 02/07/21 Cyclobenzaprine [Flexeril] 10 mg PO TID PRN 02/07/21 02/07/21 Furosemide [Lasix] 20 mg PO DAILY #7 tablet 02/07/21 Metoprolol Succinate [Toprol Xl] 25 mg PO DAILY 02/07/21 02/07/21 Mirtazapine [Remeron] 15 mg PO HS PRN 02/07/21 02/07/21 Pravastatin [Pravachol] 20 mg PO HS 02/07/21 02/07/21 Tamsulosin [Flomax] 0.4 mg PO DAILY 02/07/21 02/07/21 - Allergies Allergies/Adverse Reactions: Allergies Allergy/AdvReac Type Severity Reaction Status Date / Time adhesive tape Allergy Unknown Verified 02/07/21 12:22 lansoprazole Allergy Unknown Verified 02/07/21 12:22 promethazine HCl * Allergy Unknown Verified 02/07/21 12:22 [From Phenergan] - Social History Does the pt smoke?: No Smoking Status: Never smoker Does the pt drink ETOH?: Yes Does the pt have substance abuse?: No - Immunizations Immunizations are current?: No Immunizations: TDAP >10years/unknown - POLST Patient has POLST: No PD ED PE NORMAL - Vitals Vital signs reviewed: Yes - General General: Alert and oriented X 3, No acute distress - HEENT HEENT: Atraumatic, PERRL, EOMI, Moist mucous membranes - Neck Neck: Supple, no meningeal sign - Cardiac Cardiac: RRR, No murmur, Strong equal pulses - Respiratory Respiratory: No respiratory distress, Clear bilaterally - Abdomen Abdomen: Soft, Non tender, Non distended - Derm Derm: Normal color, Warm and dry, No rash - Extremities Extremities: No deformity, Other (2+ pitting edema bilateral lower extremities, extending nearly to knees. ) - Neuro Neuro: Alert and oriented X 3 - Psych Psych: Normal mood, Normal affect Results - Vitals Vitals: Oxygen O2 Source Room air - EKG (time done) 1232 Rate: Rate (enter#) (50) Rhythm: Sinus bradycardia [place]: LAD Intervals: Normal ND QRS: Normal Ischemia: Normal ST segments. No: T wave inversion Other comments: Other comments (PVC) Compare to prior EKG: Old EKG unavailable Computer interpretation: Agree with computer - Labs Labs: Laboratory Tests 02/07/21 02/07/21 02/07/21 12:49 12:49 12:49 WBC 4.9 RBC 4.26 L Hgb 13.6 L Hct 39.8 L MCV 93.4 MCH 31.9 H MCHC 34.2 RDW 12.6 Plt Count 197 MPV 10.0 Neut # (Auto) 3.1 Lymph # (Auto) 1.0 L [place] # (Auto) 0.5 Eos # (Auto) 0.2 Baso # (Auto) 0.0 Absolute Nucleated RBC 0.00 Nucleated RBC % 0.0 Sodium 140 Potassium 4.0 Chloride 106 Carbon Dioxide 24 Anion Gap 10.0 BUN 12 Creatinine 1.0 Estimated GFR (MDRD) 73 L Glucose 104 H Calcium 9.1 Total Bilirubin 0.8 AST 27 ALT 29 Alkaline Phosphatase 75 Troponin I High Sens 6.0 B-Natriuretic Peptide Total Protein 7.0 Albumin 4.2 Globulin 2.8 Albumin/Globulin Ratio 1.5 Lipase 36 02/07/21 12:49 WBC RBC Hgb Hct MCV MCH MCHC RDW Plt Count MPV Neut # (Auto) Lymph # (Auto) [place] # (Auto) Eos # (Auto) Baso # (Auto) Absolute Nucleated RBC Nucleated RBC % Sodium Potassium Chloride Carbon Dioxide Anion Gap BUN Creatinine Estimated GFR (MDRD) Glucose Calcium Total Bilirubin AST ALT Alkaline Phosphatase Troponin I High Sens B-Natriuretic Peptide 46 Total Protein Albumin Globulin Albumin/Globulin Ratio Lipase - Rads (name of study) CXR Radiology: Final report received, EMP read indepedently, See rad report (neg) PD MEDICAL DECISION MAKING - ED course Complexity details: reviewed results, re-evaluated patient, considered differential, d/w patient, d/w family ED course: Work-up was unremarkable, including labs, EKG, and CXR. Pt did not have other concerning sx, such as dyspnea or CP, and his swelling was symmetrical and bilateral. Pt was given a dose of Lasix in the ED. I will put him on this for a week, with the understanding that he is to follow up with his PCP to see if they feel this is a good long-term plan or not. The pt is advised to limit dietary sodium intake, elevate his legs whenever possible, and use compression hose. I have written him a prescription for medical grade hose to this end. We have discussed the usual indications for return. Departure - Departure Disposition: 01 Home, Self Care Clinical Impression: Dependent edema Condition: Stable Instructions: ED Edema Legs Bilateral Prescriptions: Furosemide [Lasix] 20 mg PO DAILY #7 tablet Comments: Your labs, EKG, and x-ray all look good. There is no evidence of a more serious condition, such as congestive heart failure or kidney failure, causing the swelling in your legs. As we discussed, there are multiple potential reasons for the swelling, including insufficiency/weakness of the veins, increased weight gain, decreased activity, and potentially dietary considerations. For this initial period, in order to empty the swelling out of the legs, we will put you on an effective diuretic, as well as medical grade pressure stockings. It is very important that you use both of these as directed. You should take the furosemide in the morning, so you do not lose any sleep with having to get up and urinate. You have been placed on a smaller dose as you are new to this medication. It is very important that you see your primary care physician in about a week when you finish the furosemide to determine whether you need to continue this medicine or what the plan should be going forward with regard to your swelling. If you do not take the medicine or you do not use the pressure stockings, it is likely that the swelling will not change, so it is very important that you do both as directed. Please also focus on getting more physical activity and cutting the salt in your diet down as much as possible. Discharge Date/Time: 02/07/21 15:07
[2021-02-07 15:06] VITALS: BP 140/61
== END 2021-02-07 15:07 | disposition home or self-care (01) ==
LOC: ED 12:12
DX: R60.0 Localized edema (principal); I49.3 Ventricular premature depolarization; R00.1 Bradycardia, unspecified; Z79.82 Long term (current) use of aspirin
CPT/HCPCS: 36415; 71045; 80053; 83690; 83880; 84484; 85025; 93005; 99284; A9270

== ENCOUNTER 2022-04-05 07:14 | Outpatient (CLI) | payer MEDICARE, BC ==
[2022-04-05 12:19] LABS: BASOPHILS % (AUTO) 0.8 %; EOSINOPHILS # (AUTO) 0.2 10^3/uL (0.0-0.7); EOSINOPHILS % (AUTO) 4.3 %; HCT - HEMATOCRIT 43.2 % (42.0-52.0); HGB - HEMOGLOBIN 14.8 g/dL (14.0-18.0); LYMPHOCYTES # (AUTO) 1.1 10^3/uL (1.5-3.5); LYMPHOCYTES % (AUTO) 21.2 %; MEAN CORPUSCULAR HGB CONC 34.3 g/dL (32.0-36.0); MEAN CORPUSCULAR VOLUME 93.3 fL (80.0-94.0); MONOCYTES # (AUTO) 0.6 10^3/uL (0.0-1.0); MONOCYTES % (AUTO) 11.9 %; NEUTROPHILS # (AUTO) 3.2 10^3/uL (1.5-6.6); NEUTROPHILS % (AUTO) 61.6 %; PLT - PLATELET COUNT 204 10^3/uL (130-450); RED BLOOD COUNT 4.63 10^6/uL (4.70-6.10); RED CELL DISTRIBUTION WIDTH 12.8 % (12.0-15.0); WHITE BLOOD COUNT 5.1 x10^3/uL (4.8-10.8)
[2022-04-05 12:50] LABS: THYROID STIMULATING HORMONE 2.42 uIU/mL (0.34-5.60)
[2022-04-05 12:58] LABS: ALBUMIN 4.4 g/dL (3.2-5.5); ALBUMIN/GLOBULIN RATIO 1.7 (1.0-2.2); ALKALINE PHOSPHATASE 69 IU/L (42-121); ALT ALANINE AMINOTRANSFERASE 24 IU/L (10-60); AST ASPARTATE AMINOTRANSFERASE 21 IU/L (10-42); BUN - BLOOD UREA NITROGEN 14 mg/dL (6-20); CALCIUM 9.6 mg/dL (8.5-10.3); CARBON DIOXIDE - CO2 25 mmol/L (21-32); CHLORIDE 109 mmol/L (101-111); CHOL/HDL RATIO 3.8 (<5.0); CHOLESTEROL 113 mg/dL; CREATININE 1.1 mg/dL (0.6-1.2); ESTIMATED AVERAGE GLUCOSE 111 mg/dL (70-100); GFR - MDRD 65 (>89); GLUCOSE 108 mg/dL (70-100); HDL CHOLESTEROL 30 mg/dL; HEMOGLOBIN A1c% 5.5 % (4.27-6.07); LDL CHOLESTEROL,CALCULATED 61 mg/dL; POTASSIUM 4.1 mmol/L (3.5-5.0); SODIUM 142 mmol/L (135-145); TRIGLYCERIDES 110 mg/dL; VLDL CHOLESTEROL 22 mg/dL
[2022-04-09 16:07] LABS: IMMUNOGLOBULIN A 113 mg/dL (61-437); IMMUNOGLOBULIN G 812 mg/dL (603-1613); IMMUNOGLOBULIN M 41 mg/dL (15-143)
== END 2022-04-05 07:15 | disposition home or self-care (01) ==
LOC: LAB.N 07:14
PROVIDERS: ATTEND Internal Medicine
DX: G62.9 Polyneuropathy, unspecified (principal); E78.5 Hyperlipidemia, unspecified; Z12.5 Encounter for screening for malignant neoplasm of prostate; R73.01 Impaired fasting glucose; I10 Essential (primary) hypertension
CPT/HCPCS: 36415; 80053; 80061; 82607; 82784; 83036; 84443; 85025; 86334; G0103; 83721; 84153

== ENCOUNTER 2022-04-06 06:41 | Outpatient (CLI) | payer MEDICARE, BC ==
--- NOTE | 2022-04-06 10:01 | Ultrasound Report ---
PROCEDURE: Retroperitoneal Limited INDICATIONS: AAA TECHNIQUE: Real-time scanning was performed of the retroperitoneal organs, with image documentation. COMPARISON: None. FINDINGS: The proximal aorta measures 2.7 x 2.8 cm. The mid aorta measures 2.6 x 2.8 cm. The distal aorta measu res 4.3 x 3.8 cm. The right ROLAND measures 1.7 x 1.8 cm. The left ROLAND measures 1.6 x 1.9 cm. IMPRESSION: Distal infrarenal abdominal aortic aneurysm increased in size measuring 4.3 x 3.8 cm compared to 3.7 x 3.7 cm on 01/02/2021 Reviewed by: Chance Rodriguez on 04/06/2022 9:59 AM PDT Approved by: Chance Rodriguez on 04/06/2022 9:59 AM PDT Station ID: [id number]
== END 2022-04-06 06:42 | disposition home or self-care (01) ==
LOC: DI 06:41
PROVIDERS: ATTEND Internal Medicine
DX: I71.4 Abdominal aortic aneurysm, without rupture (principal)

== ENCOUNTER 2022-08-13 07:08 | Outpatient (CLI) | payer MEDICARE, BC ==
[2022-08-13 12:46] LABS: BASOPHILS % (AUTO) 0.7 %; EOSINOPHILS # (AUTO) 0.2 10^3/uL (0.0-0.7); EOSINOPHILS % (AUTO) 4.3 %; HCT - HEMATOCRIT 46.1 % (42.0-52.0); HGB - HEMOGLOBIN 14.8 g/dL (14.0-18.0); LYMPHOCYTES # (AUTO) 0.9 10^3/uL (1.5-3.5); LYMPHOCYTES % (AUTO) 15.9 %; MEAN CORPUSCULAR HEMOGLOBIN 30.3 pg (27.0-31.0); MEAN CORPUSCULAR HGB CONC 32.1 g/dL (32.0-36.0); MEAN CORPUSCULAR VOLUME 94.3 fL (80.0-94.0); MEAN PLATELET VOLUME 10.5 fL (7.4-11.4); MONOCYTES # (AUTO) 0.6 10^3/uL (0.0-1.0); MONOCYTES % (AUTO) 10.9 %; NEUTROPHILS # (AUTO) 3.7 10^3/uL (1.5-6.6); PLT - PLATELET COUNT 197 10^3/uL (130-450); RED BLOOD COUNT 4.89 10^6/uL (4.70-6.10); RED CELL DISTRIBUTION WIDTH 12.8 % (12.0-15.0); WHITE BLOOD COUNT 5.4 x10^3/uL (4.8-10.8)
[2022-08-13 13:19] LABS: ALBUMIN 4.3 g/dL (3.2-5.5); ALBUMIN/GLOBULIN RATIO 1.5 (1.0-2.2); ALKALINE PHOSPHATASE 89 IU/L (42-121); ALT ALANINE AMINOTRANSFERASE 21 IU/L (10-60); AST ASPARTATE AMINOTRANSFERASE 22 IU/L (10-42); BILIRUBIN,TOTAL 0.7 mg/dL (0.2-1.0); BUN - BLOOD UREA NITROGEN 17 mg/dL (6-20); CARBON DIOXIDE - CO2 29 mmol/L (21-32); CHLORIDE 105 mmol/L (101-111); CHOL/HDL RATIO 3.8 (<5.0); CHOLESTEROL 141 mg/dL; GFR - MDRD 72 (>89); GLUCOSE 115 mg/dL (70-100); HDL CHOLESTEROL 37 mg/dL; LDL CHOLESTEROL,CALCULATED 87 mg/dL; LDL/HDL RATIO 2.4 (<3.6); POTASSIUM 4.1 mmol/L (3.5-5.0); SODIUM 142 mmol/L (135-145); TOTAL PROTEIN 7.1 g/dL (6.7-8.2); TRIGLYCERIDES 83 mg/dL; VLDL CHOLESTEROL 17 mg/dL
[2022-08-13 13:20] LABS: THYROID STIMULATING HORMONE 3.13 uIU/mL (0.34-5.60)
[2022-08-13 13:39] LABS: ESTIMATED AVERAGE GLUCOSE 120 mg/dL (70-100); HEMOGLOBIN A1c% 5.8 % (4.27-6.07)
== END 2022-08-13 07:09 | disposition home or self-care (01) ==
LOC: LAB.N 07:08
PROVIDERS: ATTEND Internal Medicine
DX: I10 Essential (primary) hypertension (principal); E78.5 Hyperlipidemia, unspecified; R73.01 Impaired fasting glucose; I48.91 Unspecified atrial fibrillation
CPT/HCPCS: 36415; 80053; 80061; 83036; 83721; 84443; 85025

== ENCOUNTER 2022-09-13 09:39 | Outpatient (CLI) | payer MEDICARE, BC | END 2022-09-13 09:40 | disposition home or self-care (01) | LOC: RT 09:39 | PROVIDERS: ATTEND Internal Medicine | DX: Z87.891 Personal history of nicotine dependence (principal) | CPT/HCPCS: 94010; 94729 ==

== ENCOUNTER 2023-01-06 10:26 | Outpatient (CLI) | payer MEDICARE, BC | END 2023-01-06 10:27 | disposition short-term general hospital (02) | LOC: EMS 10:26 | DX: R07.89 Other chest pain (principal) | CPT/HCPCS: A0425; A0429; A0888 ==

== ENCOUNTER 2023-02-25 08:00 | Outpatient (CLI) | payer MEDICARE, BC ==
[2023-02-25 12:20] LABS: BASOPHILS % (AUTO) 0.7 %; EOSINOPHILS # (AUTO) 0.2 10^3/uL (0.0-0.7); HGB - HEMOGLOBIN 14.3 g/dL (14.0-18.0); LYMPHOCYTES # (AUTO) 1.4 10^3/uL (1.5-3.5); LYMPHOCYTES % (AUTO) 24.3 %; MEAN CORPUSCULAR HEMOGLOBIN 31.5 pg (27.0-31.0); MEAN CORPUSCULAR VOLUME 92.5 fL (80.0-94.0); MEAN PLATELET VOLUME 10.3 fL (7.4-11.4); MONOCYTES # (AUTO) 0.6 10^3/uL (0.0-1.0); MONOCYTES % (AUTO) 11.4 %; NEUTROPHILS # (AUTO) 3.4 10^3/uL (1.5-6.6); NEUTROPHILS % (AUTO) 60.2 %; PLT - PLATELET COUNT 236 10^3/uL (130-450); RED BLOOD COUNT 4.54 10^6/uL (4.70-6.10); RED CELL DISTRIBUTION WIDTH 12.9 % (12.0-15.0); WHITE BLOOD COUNT 5.6 x10^3/uL (4.8-10.8)
[2023-02-25 12:39] LABS: THYROID STIMULATING HORMONE 1.83 uIU/mL (0.34-5.60)
[2023-02-25 12:40] LABS: CALCIUM 8.8 mg/dL (8.5-10.3); CREATININE 1.1 mg/dL (0.6-1.2); POTASSIUM 4.1 mmol/L (3.5-5.0)
== END 2023-02-25 23:59 | disposition home or self-care (01) ==
LOC: LAB.N 08:00
PROVIDERS: ATTEND Internal Medicine
DX: E04.1 Nontoxic single thyroid nodule (principal); Z86.79 Personal history of other diseases of the circulatory system
CPT/HCPCS: 36415; 80048; 84443; 85025

== ENCOUNTER 2023-03-08 10:03 | Outpatient (CLI) | payer MEDICARE, BC ==
--- NOTE | 2023-03-08 16:35 | Ultrasound Report ---
PROCEDURE: Head or Neck Soft Tissue INDICATIONS: THYROID NODULE TECHNIQUE: Real-time scanning was performed of the thyroid gland, with image documentation. COMPARISON: 08/20/2019; 10/28/2019 FINDINGS: Right: Thyroid lobe measures 4.1 x 1.6 x 1.6 cm, and is homogeneous in echotexture. Left: Thyroid lobe measures 4.1 x 2.4 x 1.8 cm, and demonstrates a nodular. Isthmus: 3 mm thick. Nodule number: One Location: Left upper thyroid Size: 2.1 x 1.7 x 1.8 cm. Composition: Solid. Echogenicity: Hypoechoic. Shape: wider than tall. Margins: Smooth (0 points). Echogenic foci: None (0 points). Total points: 4 ACR TI-RADS category: 4 Recommendations: Continued sonographic follow-up at 1, 2, 3, and 5 years after initial ultrasound exa mination. IMPRESSION: Follow-up recommended for left thyroid nodule as above. Reviewed by: Candida Saeed MD on 03/08/2023 4:34 PM PDT Approved by: Candida Saeed MD on 03/08/2023 4:34 PM PDT Station ID: [id number]
--- NOTE | 2023-03-08 16:50 | Ultrasound Report ---
PROCEDURE: Retroperitoneal Limited INDICATIONS: AAA TECHNIQUE: Real-time scanning was performed of the aorta and iliac arteries COMPARISON: 04/06/2022 FINDINGS: Abdominal aorta measures 26 mm proximally, 23 mm in its midportion, and 42 mm short axis distally. Ri ght common iliac artery measures 17 mm. Left common iliac artery measures 16 mm. IMPRESSION: Distal abdominal aorta aneurysm. Reviewed by: Candida Saeed MD on 03/08/2023 4:49 PM PDT Approved by: Candida Saeed MD on 03/08/2023 4:49 PM PDT Station ID: [id number]
== END 2023-03-08 10:04 | disposition home or self-care (01) ==
LOC: DI 10:03
PROVIDERS: ATTEND Internal Medicine
DX: E04.1 Nontoxic single thyroid nodule (principal); I71.40 Abdominal aortic aneurysm, without rupture, unspecified

== ENCOUNTER 2023-07-22 07:12 | Outpatient (CLI) | payer MEDICARE, BC ==
[2023-07-22 12:39] LABS: BASOPHILS % (AUTO) 0.6 %; EOSINOPHILS # (AUTO) 0.1 10^3/uL (0.0-0.7); EOSINOPHILS % (AUTO) 2.8 %; HCT - HEMATOCRIT 41.6 % (42.0-52.0); LYMPHOCYTES # (AUTO) 1.2 10^3/uL (1.5-3.5); LYMPHOCYTES % (AUTO) 23.7 %; MEAN CORPUSCULAR HEMOGLOBIN 31.9 pg (27.0-31.0); MEAN CORPUSCULAR HGB CONC 33.7 g/dL (32.0-36.0); MEAN CORPUSCULAR VOLUME 94.8 fL (80.0-94.0); MEAN PLATELET VOLUME 10.6 fL (7.4-11.4); MONOCYTES # (AUTO) 0.6 10^3/uL (0.0-1.0); NEUTROPHILS % (AUTO) 60.5 %; PLT - PLATELET COUNT 215 10^3/uL (130-450); RED BLOOD COUNT 4.39 10^6/uL (4.70-6.10); RED CELL DISTRIBUTION WIDTH 12.7 % (12.0-15.0)
[2023-07-22 13:05] LABS: CREATININE,URINE 290.5 mg/dL; MICROALBUM/CREATININE RATIO,UR 23.4 ug/mg (<30.0); MICROALBUMIN,URINE 6.8 mg/dL
[2023-07-22 13:09] LABS: ALBUMIN 4.3 g/dL (3.2-5.5); ALKALINE PHOSPHATASE 87 IU/L (42-121); ALT ALANINE AMINOTRANSFERASE 16 IU/L (10-60); AST ASPARTATE AMINOTRANSFERASE 17 IU/L (10-42); BILIRUBIN,TOTAL 0.8 mg/dL (0.2-1.0); BUN - BLOOD UREA NITROGEN 17 mg/dL (6-20); CALCIUM 9.2 mg/dL (8.5-10.3); CARBON DIOXIDE - CO2 29 mmol/L (21-32); CHLORIDE 107 mmol/L (101-111); CHOL/HDL RATIO 3.6 (<5.0); CHOLESTEROL 121 mg/dL; CREATININE 1.1 mg/dL (0.6-1.3); GFR - MDRD 65 (>89); GLUCOSE 108 mg/dL (74-104); HDL CHOLESTEROL 34 mg/dL; LDL CHOLESTEROL,CALCULATED 64 mg/dL; LDL/HDL RATIO 1.9 (<3.6); POTASSIUM 4.1 mmol/L (3.5-4.5); SODIUM 141 mmol/L (135-145); TOTAL PROTEIN 6.4 g/dL (6.4-8.9); TRIGLYCERIDES 117 mg/dL (48-352); VLDL CHOLESTEROL 23 mg/dL
[2023-07-22 13:36] LABS: ESTIMATED AVERAGE GLUCOSE 114 mg/dL (70-100); HEMOGLOBIN A1c% 5.6 % (4.27-6.07)
== END 2023-07-22 07:13 | disposition home or self-care (01) ==
LOC: LAB.N 07:12
PROVIDERS: ATTEND Internal Medicine
DX: I10 Essential (primary) hypertension (principal); E78.5 Hyperlipidemia, unspecified; R73.01 Impaired fasting glucose; N40.1 Benign prostatic hyperplasia with lower urinary tract symptoms; E04.1 Nontoxic single thyroid nodule
CPT/HCPCS: 36415; 80053; 80061; 82043; 82570; 83036; 83721; 84153; 84443; 85025

== ENCOUNTER 2023-10-30 07:11 | Day surgery (SDC) | payer MEDICARE, BC ==
[2023-10-30] MEDS: LACTATED RINGERS 1,000 ML IV ONE (07:15)
[2023-10-30] MEDS ORDERED: PROPOFOL 500 MG/50 ML 500 MG/50 ML VIAL ONE (08:02)
[2023-10-30] MEDS ORDERED: MIDAZOLAM 2 MG/2 ML VIAL ONE (08:02)
--- NOTE | 2023-10-30 08:12 | ANESTHESIA ---
Pre-Anesthesia VS, & Labs - Diagnosis HX POLYPS - Procedure colonoscopy Vital Signs: Temp Pulse Resp BP Pulse Ox O2 Flow Rate 35.9 C L 76 18 123/70 97 10/30/23 07:15 10/30/23 07:15 10/30/23 07:15 10/30/23 07:15 10/30/23 07:15 Height: 6 ft 1 in Weight (kg): 133.9 kg Body Mass Index: 38.9 BMI Classification: Obese - NPO >8 hours Last Fluid Intake: am prep - Lab Results Lab results reviewed: Yes Home Medications and Allergies Home Medications: Ambulatory Orders Cholecalciferol (Vitamin D3) [Vitamin D3] 5,000 unit PO DAILY 10/25/23 Dabigatran Etexilate Mesylate [Pradaxa] 150 mg PO BID 10/25/23 Gabapentin [Neurontin] 300 mg PO HS 10/25/23 Lisinopril [Zestril] 2.5 mg PO DAILY 10/25/23 Magnesium Oxide 250 mg PO DAILY 10/25/23 Metoprolol Succinate [Toprol Xl] 100 mg PO QPM 10/25/23 Rosuvastatin Calcium [Crestor] 10 mg PO DAILY 10/25/23 Tadalafil [Cialis] 2.5 mg PO DAILY 10/25/23 Metoprolol Succinate [Toprol Xl] 50 mg PO DAILY 02/07/21 Tamsulosin [Flomax] 0.4 mg PO DAILY 02/07/21 Cholecalciferol (Vitamin D3) [Vitamin D3] 5,000 unit PO DAILY 10/25/23 Dabigatran Etexilate Mesylate [Pradaxa] 150 mg PO BID 10/25/23 Gabapentin [Neurontin] 300 mg PO HS 10/25/23 Lisinopril [Zestril] 2.5 mg PO DAILY 10/25/23 Magnesium Oxide 250 mg PO DAILY 10/25/23 Metoprolol Succinate [Toprol Xl] 100 mg PO QPM 10/25/23 Rosuvastatin Calcium [Crestor] 10 mg PO DAILY 10/25/23 Tadalafil [Cialis] 2.5 mg PO DAILY 10/25/23 Allergies/Adverse Reactions: Allergies Allergy/AdvReac Type Severity Reaction Status Date / Time adhesive tape Allergy Rash Verified 10/25/23 11:45 lansoprazole Allergy panic Verified 10/25/23 11:45 attacks at night omeprazole [From Prilosec] Allergy panic Verified 10/25/23 11:45 attacks at night promethazine HCl * Allergy palpitation Verified 10/25/23 11:45 [From Phenergan] s Anes History & Medical History - Anesthetic History Anesthesia Complications: reports: No previous complications Family history of Anesthesia Complications: Denies Family history of Malignant Hyperthermia: Denies - Medical History Cardiovascular: reports: Congestive heart failure, Hypertension, High cholesterol, Atrial fibrillation, Arrhythmia, Other Pulmonary: reports: Sleep apnea Gastrointestinal: reports: GERD, Colon polyps Urinary: reports: Benign prostate hypertrophy, Frequency Musculoskeletal: reports: Osteoarthritis Endocrine/Autoimmune: reports: None Skin: reports: None Smoking Status: Never smoker - Surgical History General: reports: Colonoscopy, EGD Cardiothoracic: reports: Pacemaker, Cardiac catheterization Exam General: Alert, Oriented x3, Cooperative Dental: WNL Mouth Openin Fingerbreadth Neck Mobility: Normal Mallampati classification: II Respiratory: Lungs clear Cardiovascular: Other (a pace) Neurological: Normal speech Mental/Cognitive Status: Alert/Oriented X3, Normal for patient Cognitive Status: Within normal limits Plan Anesthesia Type: Total IV Consent for Procedure(s) Verified and Reviewed: Yes Code Status: Attempt Resuscitation ASA classification: 3-Severe systemic disease Is this case an emergency?: No
[2023-10-30] MEDS ORDERED: PHENYLEPHRINE HCL 0.5 MG/5 ML AMPULE ONE (08:25)
[2023-10-30] MEDS: SIMETHICONE 40 MG/0.6 ML 15 ML BOTTLE PO ONE (08:28)
[2023-10-30] MEDS: LACTATED RINGERS 700 ML IV ONE ×2 (08:45→09:17)
[2023-10-30 09:25] VITALS: BP 103/61; O2SAT 96
--- NOTE | 2023-10-30 09:35 | ANESTHESIA POST OP EVALUATION ---
Anesthesia Post Eval - Post Anesthesia Eval Vitals: Last Vital Signs Temp 36.1 C L 10/30/23 09:17 Pulse 71 10/30/23 09:17 Resp 16 10/30/23 09:17 BP 103/61 10/30/23 09:17 Pulse Ox 96 10/30/23 09:17 O2 Flow Rate CV Function Including HR & BP: Stable Pain Control: Satisfactory Nausea & Vomiting: Negative Mental Status: Baseline Respiratory Status: Airway Patent Hydration Status: Satisfactory Anesthesia Complications: None
== END 2023-10-30 07:12 | disposition home or self-care (01) ==
LOC: SDS 07:11
PROVIDERS: ATTEND Surgery
PROC: 0DBN8ZZ Excision of Sigmoid Colon, Via Natural or Artificial Opening Endoscopic (ICD-10-PCS; 2023-10-30)
PROC: 0DBM8ZZ Excision of Descending Colon, Via Natural or Artificial Opening Endoscopic (ICD-10-PCS; principal; 2023-10-30 08:30)
DX: Z12.11 Encounter for screening for malignant neoplasm of colon (principal); D12.5 Benign neoplasm of sigmoid colon; D12.4 Benign neoplasm of descending colon; K57.30 Diverticulosis of large intestine without perforation or abscess without bleeding; E66.9 Obesity, unspecified; Z68.38 Body mass index [BMI] 38.0-38.9, adult; I48.91 Unspecified atrial fibrillation; I11.0 Hypertensive heart disease with heart failure; I50.9 Heart failure, unspecified; Z79.01 Long term (current) use of anticoagulants
CPT/HCPCS: 45380; A9270; J2372; J7120

== ENCOUNTER 2024-01-23 07:05 | Outpatient (CLI) | payer MEDICARE, BC ==
[2024-01-23 12:22] LABS: ESTIMATED AVERAGE GLUCOSE 126 mg/dL (70-100)
[2024-01-23 12:25] LABS: CALCIUM 9.2 mg/dL (8.5-10.3); CREATININE 1.1 mg/dL (0.6-1.3); POTASSIUM 4.1 mmol/L (3.5-4.5)
[2024-01-23 12:38] LABS: THYROID STIMULATING HORMONE 3.87 uIU/mL (0.34-5.60)
== END 2024-01-23 07:06 | disposition home or self-care (01) ==
LOC: LAB.N 07:05
PROVIDERS: ATTEND Internal Medicine
DX: R73.01 Impaired fasting glucose (principal); E04.1 Nontoxic single thyroid nodule
CPT/HCPCS: 36415; 80048; 83036; 84443

== ENCOUNTER 2024-01-27 09:43 | Outpatient (CLI) | payer MEDICARE, BC ==
--- NOTE | 2024-01-27 17:35 | XRAY Report ---
PROCEDURE: Shoulder 2+V RT INDICATIONS: PAIN IN RIGHT SHOULDER TECHNIQUE: 3 views of the shoulder were acquired. COMPARISON: None. FINDINGS: Bones: Humeral head fracture, appearing nondisplaced within the greater tuberosity. No suspicious [place] lesions. Visualized ribs appear intact. Severe acromioclavicular moderate glenohumeral degenera tive narrowing. No erosions. Soft tissues: No suspicious soft tissue calcifications. The visualized lungs are within normal limi ts. Partially visualized pacemaker. IMPRESSION: Nondisplaced appearance of greater tuberosity fracture. Reviewed by: Karen Nixon MD on 01/27/2024 5:33 PM PDT Approved by: Karen Nixon MD on 01/27/2024 5:33 PM PDT Station ID: [id number]
== END 2024-01-27 09:44 | disposition home or self-care (01) ==
LOC: DI.N 09:43
PROVIDERS: ATTEND Internal Medicine
DX: S42.294A Other nondisplaced fracture of upper end of right humerus, initial encounter for closed fracture (principal); M19.011 Primary osteoarthritis, right shoulder

== ENCOUNTER 2024-02-29 09:39 | Outpatient (CLI) | payer MEDICARE, BC ==
--- NOTE | 2024-02-29 16:15 | XRAY Report ---
PROCEDURE: Shoulder 2+V RT INDICATIONS: NONDISPLACED FRACTURE OF GREATER TUBEROSITY TECHNIQUE: 3 views of the shoulder were acquired. COMPARISON: 3 views of the right shoulder dated 01/27/2024 FINDINGS: Bones: Proximal humeral fracture is redemonstrated. The fracture of the surgical neck was not well a ppreciated on the prior study. There is likely trace callus now visualized. Fracture fragments are in unchanged anatomic alignment. Soft tissues: No suspicious soft tissue calcifications. The visualized lungs are within normal limi ts. IMPRESSION: Stable humeral fracture with early callus now visualized. Reviewed by: Becky Leal MD on 02/29/2024 4:14 PM PDT Approved by: Becky Leal MD on 02/29/2024 4:14 PM PDT Station ID: [id number]
== END 2024-02-29 09:40 | disposition home or self-care (01) ==
LOC: DI 09:39
PROVIDERS: ATTEND Orthopaedic Surgery
DX: S42.254D Nondisplaced fracture of greater tuberosity of right humerus, subsequent encounter for fracture with routine healing (principal)

== ENCOUNTER 2024-04-08 07:49 | Outpatient (CLI) | payer MEDICARE, BC ==
--- NOTE | 2024-04-08 09:08 | XRAY Report ---
PROCEDURE: Shoulder 2+V RT INDICATIONS: NONDISPLACED FRACTURE OF GREATER TUBEROSITY OF RT TECHNIQUE: 3 views of the shoulder were acquired. COMPARISON: Right shoulder x-ray 01/27/2024 and 02/29/2024 FINDINGS: Continued ongoing healing of proximal humeral surgical neck fracture with extension to the greater tu berosity. No significant change in alignment. Partially identified right-sided pacemaker leads. IMPRESSION: Continued ongoing healing of right proximal humeral fracture. Reviewed by: Red Leiva MD on 04/08/2024 9:07 AM PDT Approved by: Red Leiva MD on 04/08/2024 9:07 AM PDT Station ID: [id number]
== END 2024-04-08 07:50 | disposition home or self-care (01) ==
LOC: DI 07:49
PROVIDERS: ATTEND Orthopaedic Surgery
DX: S42.211D Unspecified displaced fracture of surgical neck of right humerus, subsequent encounter for fracture with routine healing (principal)

== ENCOUNTER 2024-05-14 06:33 | Outpatient (CLI) | payer MEDICARE, BC ==
--- NOTE | 2024-05-14 18:08 | Ultrasound Report ---
PROCEDURE: Soft Tissue Head or Neck INDICATIONS: THYROID NODULE TECHNIQUE: Real-time scanning was performed of the thyroid gland, with image documentation. COMPARISON: Thyroid ultrasound 2018, FINDINGS: Right: Thyroid lobe measures 3.9 x 1.8 x 1.4 cm. Left: Thyroid lobe measures 3.8 x 2.5 x 2.1 cm Isthmus: 0.3 cm thick. Echotexture: Homogeneous. Nodule number: One Location: [Left lobe Size: 2.3 x 1.4 x 1.8 cm compared to 2.1 x 1.7 x 1.8 cm. Composition: Solid. Echogenicity: Hypoechoic. Shape: wider than tall (0 points). Margins: Smooth (0 points). Echogenic foci: None (0 points). Total points: 4 ACR TI-RADS category: 4 IMPRESSION: Stable appearance of thyroid nodule stable since 2019. According to recommendation below assuming neg ative prior FNA, no additional follow-up is recommended. ACR TI-RADS definitions and recommendations: TI-RADS 1 (benign): 0 points. FNA not needed. TI-RADS 2 (not suspicious): 2 points. FNA not needed. TI-RADS 3 (mildly suspicious): 3 points. "FNA if 2.5 cm or larger, follow up if 1.5 cm or larger (at 1, 3, and 5 years). TI-RADS 4 (moderately suspicious): 4-6 points. "FNA if 1.5 cm or larger, follow up if 1 cm or larger (at 1, 2, 3, and 5 years). TI-RADS 5 (highly suspicious): 7 points or more. "FNA if 1 cm or larger, follow up if 0.5 cm or larger (every year for 5 years). Reviewed by: Karen Nixon MD on 05/14/2024 6:06 PM PDT Approved by: Karen Nixon MD on 05/14/2024 6:06 PM PDT Station ID: [id number]
--- NOTE | 2024-05-14 18:10 | Ultrasound Report ---
PROCEDURE: Renal Ltd (Retroperitoneal Ltd INDICATIONS: AAA TECHNIQUE: Real-time scanning was performed of the retroperitoneal organs, with image documentation. COMPARISON: Retroperitoneal ultrasound 03/08/2023 FINDINGS: Proximal aorta measures 2.8 x 2.9 cm. Mid aorta measures 2.7 x 2.8 cm. Distal aorta measures 4.3 x 3. 6 cm compared to 4.2 x 2.9 cm. Right and left common iliac arteries measure 1.6 x 1.9 cm and 1.7 x 1. 6 cm respectively. IMPRESSION: Slight increased prominence of distal abdominal aorta currently measuring 4.3 x 3.6 cm compared to 4. 2 x 2.9 cm. Reviewed by: Karen Nixon MD on 05/14/2024 6:08 PM PDT Approved by: Karen Nixon MD on 05/14/2024 6:08 PM PDT Station ID: [id number]
== END 2024-05-14 06:34 | disposition home or self-care (01) ==
LOC: DI 06:33
PROVIDERS: ATTEND Internal Medicine
DX: E04.1 Nontoxic single thyroid nodule (principal); I71.40 Abdominal aortic aneurysm, without rupture, unspecified